=== PATIENT | female | born 1955 | race African-American/Black ===

== ENCOUNTER 2017-08-19 10:38 | Day surgery (SDC) | payer BC ==
[2017-08-18 15:42] VITALS: BMI 26.1
--- NOTE | 2017-08-19 10:12 | HP ---
Satellite [facility] - Chief Complaint Chief Complaint: right shoulder pain - Past Medical History Allergies/Adverse Reactions: Allergies Allergy/AdvReac Type Severity Reaction Status Date / Time aspirin Allergy Intermediate Verified 08/18/17 15:43 - Current Medications Current Medications: Home Medications Medication Instructions Recorded Oxycodone HCl/Acetaminophen 1 - 2 tab PO Q6H #50 tab MDD 8 08/19/17 [Percocet 5-325 mg Tablet] Satellite Physical Exam - Physical Examination General Appearance: Well Nourished, Well Developed, Alert & Oriented x3 ENT: Clear Lung: Normal air movement Heart: Regular rate & rhythm Extremities: Other (right shoulder- + ttp, dec rom, + neer, + ray, + empty can, nvi MRI + rct) Neurological: Intact, Alert, Oriented Satellite Impression/Plan - Impression/Plan Impression: right shoulder rct Operative Procedure: right shoulder arthroscopy with RCR, SAD Date to be Performed: 08/19/17
[2017-08-19] MEDS ORDERED: DEXAMETHASONE SOD PHOSPHATE/PF 10 MG/ML SDV ONE (11:28)
[2017-08-19] MEDS ORDERED: BUPIVACAINE HCL/PF 0.25% (2.5MG/ML) 10 ML VIAL ONE (11:28)
[2017-08-19] MEDS ORDERED: MIDAZOLAM HCL 2 MG/2 ML SINGLE DOSE VIAL ONE ×2 (11:53)
[2017-08-19] MEDS ORDERED: BUPIVACAINE HCL/PF 0.5% (5MG/ML) 10 ML VIAL ONE (11:56)
[2017-08-19] MEDS ORDERED: fentaNYL CITRATE 250 MCG/5 ML VIAL ONE (12:27)
[2017-08-19] MEDS ORDERED: LIDOCAINE HCL/PF 2% SDV 5ML VIAL ONE (12:29)
[2017-08-19] MEDS ORDERED: ROCURONIUM BROMIDE 50 MG/5 ML VIAL ONE (12:29)
[2017-08-19] MEDS ORDERED: DEXAMETHASONE SOD PHOSPHATE 4 MG/1 ML VIAL ONE (12:29)
[2017-08-19] MEDS ORDERED: PROPOFOL 20 ML ONE (12:29)
[2017-08-19] MEDS ORDERED: ceFAZolin SODIUM 1 GM VIAL IVPB ONE (12:40)
[2017-08-19] MEDS ORDERED: ceFAZolin SODIUM 1 GM VIAL ONE (12:40)
[2017-08-19] MEDS ORDERED: ePHEDrine SULFATE 50 MG/1 ML AMPULE ONE (12:54)
[2017-08-19] MEDS ORDERED: NEOSTIGMINE METHYLSULFATE 0.5 MG/ML - 10 ML MDV ONE (13:12)
[2017-08-19] MEDS ORDERED: GLYCOPYRROLATE 0.2 MG/1 ML VIAL ONE (13:13)
--- NOTE | 2017-08-19 13:19 | OP ---
Operative Note - Note: Operative Date: 08/19/17 ([facility]) Pre-Operative Diagnosis: right shoulder rct Operation: right shoulder arthroscopy with RCR, SAD Implants: 1 swivelock Post-Operative Diagnosis: Same as Pre-op Surgeon: Santos Santos Ore Buyer: Zacarias Jung) Anesthesiologist/CERAMIST: Steven Hassan Anesthesia: General, Local Specimens Removed: shavings Estimated Blood Loss (mls): 5 Operative Report Dictated: Yes
[2017-08-19] MEDS ORDERED: ONDANSETRON 4 MG/2 ML VIAL IVPUSH PRN (13:32)
[2017-08-19] MEDS ORDERED: oxyCODONE HCL 5 MG TABLET PO PRN (13:32)
[2017-08-19] MEDS ORDERED: LACTATED RINGERS SOLUTION 1,000 ML IV SCH (13:45)
[2017-08-19 16:56] VITALS: TEMP 97.9
[2017-08-19 16:59] VITALS: BP 130/69; PULSE 73
--- NOTE | 2017-08-19 19:18 | OP ---
DATE OF OPERATION: 08/19/2017 PREOPERATIVE DIAGNOSIS: Right rotator cuff tear. POSTOPERATIVE DIAGNOSIS: Right rotator cuff tear. PROCEDURE: Arthroscopy, right shoulder, with subacromial decompression and debridement of bone and soft tissue and arthroscopic rotator cuff repair. SURGICAL ATTENDING: Emilia Santos MD HUMIDIFIER MAINTENANCE WORKER: GENOVEVA Kim and Zacarias Jung MD ANESTHESIA: Regional and general. CLOSURE: Suture tape and SwiveLock for rotator cuff and 3-0 nylon for skin. ESTIMATED BLOOD LOSS: Negligible. COMPLICATIONS: None. CONDITION: Recovery in stable condition. DESCRIPTION OF OPERATIVE PROCEDURE: Patient taken to the operating room on August 19, 2017. Regional and general anesthesia was administered by the anesthesiologist. IV Kefzol administered prophylactically prior to the case. Patient was placed in the beach chair position with all prominences well padded. The right shoulder was prepped and draped in the usual sterile fashion. First, a diagnostic arthroscopy of the glenohumeral joint was performed. The posterior portal was made 2 fingerbreadths below the acromion, first with a 15 blade, followed by a blunt trocar. Circumferential exam of the glenohumeral joint revealed the following: Intact glenoid and humeral head articular cartilage, intact labrum circumferentially, intact biceps and biceps anchor. Intact subscapularis to its insertion. The supraspinatus was visualized to be markedly thinned but still partially attached. The rest of the rotator cuff was intact. The fluid was drained from the shoulder, and trocar was removed. The posterior trocar was redirected in the subacromial space. An accessory lateral portal was made using a 15 blade, followed by a blunt trocar. A large amount of bursal tissue was encountered. This was debrided using the shaver and the ArthroCare device. The soft tissue encasing the humeral heal was debrided using ArthroCare device as well. The undersurface of the acromion was debrided, removing a subacromial spur and making height for the rotator cuff. The coracoacromial ligament was identified and detached off the anterior acromion, was visualized to drop inferiorly and was further debrided. The rotator cuff on the bursal side was inspected to be intact. However, gentle probing of the most anterior portion revealed that it was paper-thin in this region. The rest of it was debrided, exposing the rotator cuff tear beneath. This consisted mostly of the anterior aspect of the supraspinatus tendon. The bed was debrided using the shaver and the jacinto. Two suture tape sutures placed arthroscopically using a Scorpio device and using a horizontal mattress formation, were placed on the rotator cuff. This was used to pull the rotator cuff down to the greater tuberosity. The sutures were then passed through SwiveLock anchor and fixated to the greater tuberosity. The sutures were cut flush. Post-fixation probing revealed excellent repair and good scientologist of tension on the rotator cuff. Shoulder was irrigated. The trocars were removed. The portals were closed using 3-0 nylon. A sterile pressure dressing, followed by shoulder immobilizer was applied. Patient awakened from anesthesia and transferred to recovery room in stable condition. Zacarias Jung MD dictating for MD EMILIA Buitrago M.D. [id number]
--- NOTE | 2017-08-21 16:17 | PATH ---
Surgical Pathology Report Patient Name: PEPE FABIAN [facility]. Rec. #: [id number] /Age/Gender: 1955 (Age: 62) / F Account: [id number] Location: [facility] SURGICAL Taken: 08/19/2017 Received: 08/20/2017 Reported: 08/21/2017 Physicians: Santos Santos M.D. Specimen(s) Received RIGHT SHOULDER SHAVINGS Clinical History Right shoulder tear Final Diagnosis SHOULDER SHAVINGS, RIGHT, ARTHROSCOPY: FRAGMENTS OF BENIGN CARTILAGE, DENSE FIBROCONNECTIVE TISSUE, ADIPOSE TISSUE, BONE AND AND SKELETAL MUSCLE. Electronically Signed Carrie Snowden M.D. Gross Description Received in formalin, labeled "right shoulder shavings," is a 4.2 x 4.0 x 0.3 cm. aggregate of mccullough-yellow soft tissue fragments. A entry level sales representative portion is submitted in one cassette. /08/20/201708/19/2017
== END 2017-08-19 16:50 | disposition home or self-care (01) ==
LOC: JASU-SURG 10:38
PROVIDERS: ATTEND Orthopaedic Surgery
PROC: 0RNK4ZZ Release Left Shoulder Joint, Percutaneous Endoscopic Approach (ICD-10-PCS; principal; 2017-08-19 11:45)
PROC: 0LQ14ZZ Repair Right Shoulder Tendon, Percutaneous Endoscopic Approach (ICD-10-PCS; 2017-08-19 11:45)
DX: M75.101 Unspecified rotator cuff tear or rupture of right shoulder, not specified as traumatic (principal)
CPT/HCPCS: 88304-TC; 94760